=== PATIENT | female | born 1970 | race Caucasian/White ===

== ENCOUNTER 2016-02-28 15:40 | Emergency (ER) | payer MEDICARE, MEDICAID ==
[~2016-02-28] VITALS: Ht 172.7 cm; Wt 75.9 kg
[2016-02-28 15:56] VITALS: BP 130/83; PULSE 75; RESP 16; O2SAT 100
--- NOTE | 2016-02-28 17:42 | ED.REPORT ---
HPI-Extremity Problem Lower Date of Service Feb 28, 2016 ED Provider: Manuel Conrad PA-C Summer is a 45-year-old homeless female who presents with a chief complaint of painful, swollen feet. Patient states that during a recent period of cold wet weather she spent about a day with soggy shoes and her feet became numb. She reports that since her feet have warmed up they have become swollen and painful. Denies history of diabetes or cancer. Nursing Notes Stated Complaint: FEET SWELLING Chief Complaint: Extremity Trauma Nursing Notes Reviewed: Yes Allergies: Coded Allergies: hydrocodone (Verified Allergy, Severe, 02/28/16) Uncoded Allergies: SULFA (Allergy, Severe, 12/05/08) Scheduled Cephalexin (Cephalexin) 500 Mg Capsule 500 MG PO QID Scheduled PRN oxyCODONE-Acetaminophen 5-325 mg (oxyCODONE-Acetaminophen 5-325 mg) 1 Each Tablet 1-2 TAB PO Q6H PRN PRN For Pain General Time Seen by MD: 17:27 Chief Complaint Foot injury right, Foot injury left Risk-Extremity Prob Lower Well's Criteria for DVT Local tend d-vein sys (1), Altern dx DVT likely (-2) Well's DVT Score: 0 pts (low risk 5%) Past Medical History Past Medical History Reviewed, pt denies Smoking History Never Smoker Social History Alcohol Use: Denies alcohol use Review of Systems Negative unless stated otherwise in history of present illness Physical Exam General: Well appearing, well developed, well nourished, moderate distress. Head: Atraumatic, normocephalic. Eyes: No scleral icterus or injection. No discharge. Vision grossly intact. ENT: Voice clear, hearing grossly intact. Skin: Warm and dry. Legs: Right calf tender to palpation and slightly larger than left. Feet: Bilaterally red, tender skin over toes, forefoot, plantar surface, heel. Onychomycosis in all digits. Several areas of callus, with no obvious signs of infection. One area of pale callus on the plantar surface of the third and fourth MTP joints of the left foot. Sensation intact. Neurological: Grossly nonfocal. Psychological: alert and oriented. Speech pressured. Initial Vital Signs Vital Signs (First) Date Time Temp Pulse Resp B/P Pulse Ox O2 Delivery O2 Flow Rate FiO2 02/28/16 15:56 36.7 75 16 130/83 100 Room Air Initial VS: Reviewed, Vital signs normal Interpretation & Diagnostics Interpretation & Diagnostics: D-dimer negative Lab Results Interpretation Test 02/28/16 18:40 D-Dimer < 0.5mg/L (<0.50) Hold Mosley Top Tube Received (Received) Re-Eval/Medical Decision Med Decision/Clinical Course Considered cellulitis, immersion foot, frostbite, DVT. Right calf was slightly larger than left with some tenderness. Wells low risk. D-dimer was negative. Frostbite seems unlikely as the flesh is well perfused, with no waxy appearance or blebs. Slight concern for cellulitis due to number of calluses and sores on the patient's feet. Most likely this is immersion foot. Treated with Keflex and advised keeping the foot warm and dry until condition improves. Provided primary care follow-up for advise primary care follow-up in 4-5 days. Provided pain control and return precautions. Discharge & Departure Impression: Primary Impression: Immersion foot Encounter type: initial encounter Laterality: unspecified laterality Qualified Code: T69.029A - Immersion foot, unspecified foot, initial encounter Disposition: Home Discharge Condition All VS Reviewed: Yes Condition: Stable Additional Instructions: Evaluation bilateral foot pain in the emergency Department today. On physical examination your feet do appear to be red and swollen and painful. I believe this is most likely due to your feet being cold for so long rather than being due to infection or DVT. Diagnosis is immersion foot. Treatment is keeping the foot warm and dry until her symptoms resolve, which can take quite some time. I suggest treating with pain 600 mg of ibuprofen every 6 hours. I will write a prescription for a small amount of Percocet to be taken for pain not controlled by ibuprofen. Do not drink alcohol or operating a vehicle while taking Percocet. I will also write you a prescription for a course of antibiotics to be taken 4 times a day for 5 days, because you have so many wounds on your feet. Posterior referral for primary care follow-up. Please follow up with them in 4 or 5 days to assess your progress and discuss foot care. Return to emergency department for any new or worsening symptoms including fever, increasing redness, swelling, pain with the appearance of pus. Referrals: [facility] E[facility]ising Provider for APC: Steve Lee Seth PA-C Feb 28, 2016 17:42
[2016-02-28] MEDS ORDERED: Ketorolac 30 mg/mL 2 mL Inj IM ONE (17:45)
[2016-02-28] MEDS ORDERED: CEPH500C PO (19:44)
[2016-02-28] MEDS ORDERED: OXYC1TAB24 PO (19:44)
== END 2016-02-28 19:55 | disposition home or self-care (01) ==
LOC: SED 15:40
DX: T69.021A Immersion foot, right foot, initial encounter (principal); T69.022A Immersion foot, left foot, initial encounter; X31.XXXA Exposure to excessive natural cold, initial encounter; Y92.9 Unspecified place or not applicable; Y93.01 Activity, walking, marching and hiking; Y99.8 Other external cause status; Z59.0 Homelessness; Z88.5 Allergy status to narcotic agent; Z88.2 Allergy status to sulfonamides
CPT/HCPCS: 36415; 85379; 96372; 99283; J1885